=== PATIENT | male | born 1945 ===

== ENCOUNTER 2019-03-26 19:47 | Emergency (ER) | payer MEDICARE ==
[~2019-03-26] VITALS: Ht 185.4 cm; Wt 90.9 kg
--- NOTE | 2019-03-26 20:14 | NUR ---
C-COLLAR PLACED IN TRIAGE DUE TO VICTOR HUGO
[2019-03-26] MEDS ORDERED: TRANEXAMIC ACID IN NACL,ISO-OS 100 ML IV ONE (21:05)
--- NOTE | 2019-03-26 21:27 | NUR ---
JOSE MARIA DONOVAN [facility] CERVICAL SPINE PRECAUTIONS MAINTAINED. PATIENT RECEIVED TXA VIA 18 GAUGE RIGHT AC PIV, C/O OF NAUSEA AND BLURRY VISION
[2019-03-26 21:29] VITALS: BP 137/58
== END 2019-03-26 21:34 | disposition short-term general hospital (02) ==
LOC: ER 19:48
DX: S06.6X9A Traumatic subarachnoid hemorrhage with loss of consciousness of unspecified duration, initial encounter (principal); M54.2 Cervicalgia; Z88.6 Allergy status to analgesic agent; W11.XXXA Fall on and from ladder, initial encounter; Y93.89 Activity, other specified; Y92.89 Other specified places as the place of occurrence of the external cause; Y99.9 Unspecified external cause status
CPT/HCPCS: 70450; 72125; 93005; 96365; 99291